=== PATIENT | male | born 1960 | race Caucasian/White ===

== ENCOUNTER 2023-08-07 14:17 | Outpatient (CLI) | payer OTHER | END 2023-08-07 14:18 | disposition home or self-care (01) | LOC: CSHMRI 14:17 | PROVIDERS: ATTEND Nurse Practitioner Family | DX: M54.16 Radiculopathy, lumbar region (principal); M43.17 Spondylolisthesis, lumbosacral region; M54.17 Radiculopathy, lumbosacral region; M48.07 Spinal stenosis, lumbosacral region | CPT/HCPCS: 72148 ==

== ENCOUNTER 2023-10-21 15:42 | Outpatient (CLI) | payer OTHER | END 2023-10-21 15:43 | disposition home or self-care (01) | LOC: CSHRAD 15:42 | PROVIDERS: ATTEND Family Medicine | DX: M25.511 Pain in right shoulder (principal); S99.912A Unspecified injury of left ankle, initial encounter; M79.672 Pain in left foot ==